=== PATIENT | female | born 1995 | race Caucasian/White ===

== ENCOUNTER 2016-10-28 07:06 | Day surgery (SDC) | payer OTHER ==
[2016-10-26 12:18] VITALS: BMI 24.1
[~2016-10-28 07:06] MED LIST: LIDOCAINE 1%/EPI 1:100000 (20 ML MULTI DOSE VIAL) INF ONE
[2016-10-28] MEDS ORDERED: LIDOCAINE 1%/EPI 1:100000 (50 ML MULTI DOSE VIAL) ONE (08:43)
[2016-10-28] MEDS ORDERED: MIDAZOLAM HCL 2 MG/2 ML SINGLE DOSE VIAL ONE (08:51)
[2016-10-28] MEDS ORDERED: KETOROLAC TROMETHAMINE 30 MG/1 ML VIAL ONE (08:51)
[2016-10-28] MEDS ORDERED: DEXAMETHASONE SOD PHOSPHATE 4 MG/1 ML VIAL ONE ×2 (08:51→09:06)
[2016-10-28] MEDS ORDERED: ROCURONIUM BROMIDE 50 MG/5 ML VIAL ONE (08:51)
--- NOTE | 2016-10-28 08:53 | HP ---
History & Physical Update - Physical Physical: No Change - Assessment Assessment: No Change - Plan Plan: No Change (Removal right nasopharyngeal lesion. Likely benign though possibly causing patient's globus sensation as it is seen to ballot up and down when she swallows through action of the soft palate. Patient aware removing this lesion may not resolve this symptom.)
[2016-10-28] MEDS ORDERED: EPINEPHrine/PF 1 MG/1 ML (1:1,000) AMPULE ONE (09:35)
[2016-10-28] MEDS ORDERED: oxyCODONE HCL 5 MG TABLET PO PRN (09:37)
[2016-10-28] MEDS ORDERED: ONDANSETRON 4 MG/2 ML VIAL IVPUSH PRN (09:37)
[2016-10-28] MEDS ORDERED: PROMETHAZINE HCL 25 MG/1 ML VIAL IVPUSH PRN (09:37)
[2016-10-28] MEDS ORDERED: GLYCOPYRROLATE 0.2 MG/1 ML VIAL ONE (09:39)
[2016-10-28] MEDS ORDERED: LACTATED RINGERS SOLUTION 1,000 ML IV SCH (09:45)
[2016-10-28] MEDS ORDERED: PROPOFOL 20 ML ONE (09:48)
[2016-10-28] MEDS ORDERED: FERROUS SO4 325 MG TABLET (FP) PO SCH (10:00)
[2016-10-28] MEDS ORDERED: NALOXONE HCL 0.4 MG/ML VIAL ONE (10:07)
--- NOTE | 2016-10-28 10:22 | OP ---
Operative Note - Note: Operative Date: 10/28/16 Pre-Operative Diagnosis: Right Nasopharyngeal Cyst Operation: Excision Nasopharyngeal Lesion Post-Operative Diagnosis: Same as Pre-op Surgeon: Lyle Patel Anesthesiologist/AUTOMATION SPECIALIST: Nate Maurice Jr. Anesthesia: General Specimens Removed: nasopharyngeal cyst Estimated Blood Loss (mls): 20 Fluid Volume Replaced (mls): 1,000 Operative Report Dictated: Yes
[2016-10-28] MEDS ORDERED: ACETAMINOPHEN INJECTION 100 ML IVPB ONE (10:42)
--- NOTE | 2016-10-28 10:56 | OP ---
DATE OF OPERATION: 10/28/2016 ATTENDING SURGEON: Lyle Sosa MD YARD SWITCH OPERATOR: Nate Maurice CRNA PREOPERATIVE DIAGNOSIS: Right nasopharyngeal lesion. POSTOPERATIVE DIAGNOSIS: Right nasopharyngeal lesion. PROCEDURE PERFORMED: Excisional biopsy of right nasopharyngeal lesion. ESTIMATED BLOOD LOSS: 20 mL. INTRAVENOUS FLUIDS: 1 L. SPECIMENS: Right nasopharyngeal lesion. INDICATIONS: The patient is a 21-year-old woman who presented with a history of feeling like there was a lump in her throat on the right side. She would only feel this when she swallowed and says she felt it moving up and down. She also had signs of laryngopharyngeal reflux, and treatment was initially done for this with improvement of some of her other symptoms, but no change in this globus sensation. On endoscopy, she was seen to have cystic polypoid lesion off of the posterior cushion inferiorly of the right eustachian tube. Radiology did not reveal any underlying suspicious mass. Given that it was seen to in fact move up and down with swallowing by action of the soft palate and her failure to respond to laryngopharyngeal reflux treatment, she is felt to be a candidate for removal of this lesion to see if it was responsible for her symptoms. Attempts were made in the office to remove it. However, it was too firmly adherent and not sufficiently accessible. It was then decided to take the patient to the operating room for treatment. After explaining the risks, benefits, limitations, and alternatives , the patients questions were answered. She demonstrated her understanding. Informed consent was given. She understands there is no guarantee of the outcome of surgery, and that further medical and/or surgical treatment may be necessary. FINDINGS: Polypoid mass inferiorly along the posterior cushion of the eustachian tube and the right nasopharynx. PROCEDURE IN DETAIL: The patient was taken from the preoperative area to the OR , placed on the table in a supine position. General anesthesia was induced, and the patient was intubated. A time-out was called, and she received a preoperative dose of steroid. She was prepped and draped in standard fashion. Topical lidocaine with epinephrine was used to decongest the nose. A 0-degree rigid endoscope was used to examine the nasopharynx. Initially, attempts were made with a [id number] straight forceps to grab the polyp. However, it was not sufficient to detach it from its base. Not seeing any through-cut instrumentation on the set, the microdebrider was then used in an attempt to remove the lesion. However, given the angulation and the back of the nasopharynx located more inferiorly, this was also not accessible. A through-cut forceps was identified and then used to remove the polyp. There was minimal stalk remaining, which was difficult to access transnasally. A tonsil set was opened and a McIvor clamp was inserted to allow access to the nasopharynx in standard adenoidectomy fashion, as had been discussed with the patient beforehand. A Kyel-Doretha catheter was used to elevate the soft palate, and care was taken to avoid damage to the teeth. Using a dental mirror, the stump of the polyp was then identified and cauterized with a suction Bovie. This was then examined again transnasally with a rigid endoscopy. Care was taken to avoid damage or cautery to the eustachian tube orifice and cushion itself to avoid scarring. Satisfied with the debulking of the polyp and with hemostasis, the mouth gag and catheters were removed. The patient was then returned to the care of the anesthesiology team for awakening and extubation. All counts were correct. I was present for and performed this entire procedure. LYLE SOSA M.D. [id number] MTDD
[2016-10-28 11:36] VITALS: PULSE 83
[2016-10-28] MEDS ORDERED: ACETAMINOPHEN 1000 MG/100 ML VIAL (NON FORMULARY) IVPB ONE (12:15)
[2016-10-28] MEDS ORDERED: oxyCODONE HCL 5 MG TABLET ONE (12:15)
[2016-10-28 12:36] VITALS: TEMP 99
[2016-10-28 12:51] VITALS: BP 104/66
--- NOTE | 2016-11-02 09:37 | PATH ---
Surgical Pathology Report Patient Name: HARLEEN DIAZ Med. Rec. #: [id number] /Age/Gender: 1995 (Age: 21) / F Account: [id number] Location: [facility] SURGICAL Taken: 10/28/2016 Received: 10/28/2016 Reported: 11/02/2016 Physicians: Lyle Patel M.D. Specimen(s) Received NASAL PHARYNGEAL POLYP Clinical History Nasal polyps Final Diagnosis NASAL PHARYNGEAL POLYP, EXCISION: CONSISTENT WITH BENIGN NASOPHARYNGEAL HAMARTOMA (SEE COMMENT). Comment: The sections show a polypoid lesion comprised of dense stroma with embedded benign seromucinous glands, mature adipose tissue and mature cartilage. These findings are most consistent with nasopharyngeal hamartoma. Electronically Signed Michael Bowen M.D. Gross Description Received in formalin labeled nasal pharyngeal polyp are two fragments of shafer-pink tissue measuring 0.5 cm in greatest dimension each. Entirely submitted in one cassette. (AF) ymcash/10/28/2016
== END 2016-10-28 12:51 | disposition home or self-care (01) ==
LOC: JASU-SURG 07:06
PROVIDERS: ATTEND Otolaryngology Facial Plastic Surgery
PROC: 095 Ear, Nose, Sinus, Destruction (ICD-10-PCS; principal; 2016-10-28 08:30)
DX: J33.0 Polyp of nasal cavity (principal)
CPT/HCPCS: 84703; 88305-TC; 94760

== ENCOUNTER 2018-10-24 10:52 | Emergency (ER) | payer OTHER ==
[2018-10-24 10:57] VITALS: BMI 26.6
--- NOTE | 2018-10-24 11:15 | PDOC ---
History of Present Illness - General History Source: Patient Exam Limitations: No Limitations - History of Present Illness Initial Comments: 10/24/18 12:35 The patient is a 23-year-old female, A4, with a past medical history of herpes and one previous episode of chlamydia, who presents to the ED with vaginal bleeding, abdominal pain, and lower back pain. Patient states that the vaginal bleeding began on Monday10/19/18 and is brown in color. Patients abdominal pain began on Monday10/22/18 and states that it is located in the RUQ. Patient has a history of failed pregnancies, 2 miscarriages, 1 , and 1 ectopic (2017 - injection). She reports that her abdominal pain is similar to what she experienced last year when she had an ectopic . Patient follows up at [facility]. The patient denies any fevers, chills, nausea, vomiting, or diarrhea. Denies any urinary symptoms. Denies any chest pain or shortness of breath. Allergies: NKA Social History: None reported. Surgical History: Tonsillectomy, polyp removal from throat. PCP: Dr. Tobin Felix <Jayne Azevedo - Last Filed: 10/24/18 12:35> - General History Source: Patient Exam Limitations: No Limitations <Marina James - Last Filed: 10/27/18 01:28> - General Chief Complaint: Vaginal Bleeding Stated Complaint: POSSIBLE ECTOPIC PREG Time Seen by Provider: 10/24/18 11:15 Past History <Jayne Azevedo - Last Filed: 10/24/18 12:35> - Past Medical History Anemia: Yes CVA: No COPD: No Dementia: No GI Disorders: No Disorders: No Liver Disease: No Thyroid Disease: No - Reproductive History (#): 2 Para: 0 Therapeutic (s) & number: Yes (X1) - Immunization History Immunization Up to Date: Yes - Suicide/Smoking/Psychosocial Hx Smoking Status: No Smoking History: Never smoked Have you smoked in the past 12 months: No Number of Cigarettes Smoked Daily: 5 Hx Alcohol Use: No Drug/Substance Use Hx: No Substance Use Type: None <Marina James - Last Filed: 10/27/18 01:28> - Past Medical History Allergies/Adverse Reactions: Allergies Allergy/AdvReac Type Severity Reaction Status Date / Time No Known Drug Allergies Allergy Verified 10/26/18 16:45 Home Medications: Ambulatory Orders Omeprazole 20 mg PO ASDIR 10/26/18 Review of Systems - Review of Systems Able to Perform ROS?: Yes Comments:: 10/24/18 12:36 GENERAL/CONSTITUTIONAL: No fever or chills. No weakness. HEAD, EYES, EARS, NOSE AND THROAT: No change in vision. No ear pain or discharge. No sore throat. CARDIOVASCULAR: No chest pain or shortness of breath. RESPIRATORY: No cough, wheezing, or hemoptysis. GASTROINTESTINAL: (+)Abdominal pain. No nausea, vomiting, diarrhea or constipation. GENITOURINARY: (+)Vaginal bleeding. No dysuria, frequency, or change in urination. MUSCULOSKELETAL: (+)Lower back pain. No joint swelling or pain. No neck pain. SKIN: No rash NEUROLOGIC: No headache, vertigo, loss of consciousness, or change in strength/ sensation. ENDOCRINE: No increased thirst. No abnormal weight change. HEMATOLOGIC/LYMPHATIC: No anemia, easy bleeding, or history of blood clots. ALLERGIC/IMMUNOLOGIC: No hives or skin allergy. <Jayne Azevedo - Last Filed: 10/24/18 12:35> *Physical Exam - Vital Signs Last Vital Signs Temp Pulse Resp BP Pulse Ox 98.2 F 110 H 18 121/69 100 10/24/18 10:55 10/24/18 10:55 10/24/18 10:55 10/24/18 10:55 10/24/18 10:55 <Jayne Azevedo - Last Filed: 10/24/18 12:35> - Vital Signs Last Vital Signs Temp Pulse Resp BP Pulse Ox 98.2 F 110 H 18 121/69 100 10/24/18 10:55 10/24/18 10:55 10/24/18 10:55 10/24/18 10:55 10/24/18 10:55 <Marina James - Last Filed: 10/27/18 01:28> Moderate Sedation - Procedure Monitoring Vital Signs: Procedure Monitoring Vital Signs Temperature 98.2 F 10/24/18 10:55 Pulse Rate 110 H 10/24/18 10:55 Respiratory Rate 18 10/24/18 10:55 Blood Pressure 121/69 10/24/18 10:55 O2 Sat by Pulse Oximetry (%) 100 10/24/18 10:55 <Jayne Azevedo - Last Filed: 10/24/18 12:35> - Procedure Monitoring Vital Signs: Procedure Monitoring Vital Signs Temperature 98.2 F 10/24/18 10:55 Pulse Rate 110 H 10/24/18 10:55 Respiratory Rate 18 10/24/18 10:55 Blood Pressure 121/69 10/24/18 10:55 O2 Sat by Pulse Oximetry (%) 100 10/24/18 10:55 <Marina James - Last Filed: 10/27/18 01:28> ED Treatment Course - LABORATORY CBC & Chemistry Diagram: 10/24/18 11:30 10/24/18 11:30 - ADDITIONAL ORDERS Additional order review: Laboratory Results 10/24/18 10/24/18 10/24/18 11:30 11:30 11:30 PT with INR 12.40 INR 1.05 Sodium 137 Potassium 3.8 Chloride 105 Carbon Dioxide 27 Anion Gap 6 L BUN 10 Creatinine 0.7 Creat Clearance w eGFR > 60 Random Glucose 90 Calcium 9.1 Total Bilirubin 0.3 AST 10 L ALT 15 Alkaline Phosphatase 93 Total Protein 7.9 Albumin 4.1 Beta HCG, Quant 837.3 Blood Type O NEGATIVE Antibody Screen Negative 10/24/18 11:30 RBC 4.69 MCV 78.8 L MCHC 34.0 RDW 14.4 MPV 8.4 Neutrophils % 47.7 Lymphocytes % 41.3 H Monocytes % 9.9 Eosinophils % 0.4 Basophils % 0.7 <Jayne Azevedo - Last Filed: 10/24/18 12:35> - LABORATORY CBC & Chemistry Diagram: 10/24/18 11:30 10/24/18 11:30 <Marina James - Last Filed: 10/27/18 01:28> Medical Decision Making - Medical Decision Making 23 yo F presenting to the ER due to suspected ectopic (because her pain is similar to pain 2017) Pt is approximately 5 weeks by dates Is followed by [facility] Pt has noted dark vaginal discharge 10/24/18 12:39 Laboratory Tests 10/24/18 10/24/18 10/24/18 11:30 11:30 11:30 WBC 5.5 Hgb 12.6 Hct 37.0 Plt Count 222 INR 1.05 BUN 10 Creatinine 0.7 Beta HCG, Quant 837.3 TVUS pending 10/24/18 13:57 US with corpus luteum cyst in left ovary Pt will need to follow up for repeat BHCG and TVUS Laboratory Tests 10/24/18 11:30 Blood Type O NEGATIVE Will give Rhogam Will D/c with 48 hour follow up <Marina James - Last Filed: 10/27/18 01:28> *DC/Admit/Observation/Transfer - Attestations Scribe Attestion: 10/24/18 12:38 Documentation prepared by Jayne Azevedo, acting as biomedical service engineer for Marina James MD. <Jayne Azevedo - Last Filed: 10/24/18 12:35> <Marina James - Last Filed: 10/27/18 01:28> Diagnosis at time of Disposition: Vaginal bleeding in - Discharge Dispostion Disposition: HOME Condition at time of disposition: Stable - Referrals Referrals: Tobin Felix MD [Primary Care Provider] - - Patient Instructions Printed Discharge Instructions: DI for Vaginal Bleeding During Additional Instructions: Ms Pino Thank you for coming in to the ER today Please be sure to follow up with your OB OR the ER in 48 hours (on Monday) for repeat BHCG (chemistry hormone) Please return to the ER for heavy bleeding, lightheadedness, weakness, saturating 2 pads/hour x 2 hours, any other concern or complaint
[2018-10-24 11:37] LABS: BASO % 0.7 % (0-2.0); EOS % 0.4 % (0-4.5); HEMOGLOBIN 12.6 GM/dL (10.7-15.3); LYMPH % 41.3 % (8-40); MCH 26.8 pg (25.7-33.7); MEAN CELL VOLUME 78.8 fl (80-96); MEAN PLT VOLUME 8.4 fl (7.5-11.1); MONO % 9.9 % (3.8-10.2); NEUT % 47.7 % (42.8-82.8); PLATELET COUNT 222 K/MM3 (134-434); RBC 4.69 M/mm3 (3.60-5.2); RDW 14.4 % (11.6-15.6); WHITE BLOOD COUNT 5.5 K/mm3 (4.0-10.0)
[2018-10-24 12:07] LABS: ALBUMIN 4.1 g/dl (3.4-5.0); ALK PHOS 93 U/L (45-117); ANION GAP 6 MMOL/L (8-16); BILIRUBIN,TOTAL 0.3 mg/dL (0.2-1); BLOOD UREA NITROGEN 10 mg/dL (7-18); CALCIUM 9.1 mg/dL (8.5-10.1); CHLORIDE 105 mmol/L (98-107); CO2 27 mmol/L (21-32); CREATININE 0.7 mg/dL (0.55-1.3); GLUCOSE,RANDOM 90 mg/dL (74-106); POTASSIUM 3.8 mmol/L (3.5-5.1); SGOT/AST 10 U/L (15-37); SGPT/ALT 15 U/L (13-61); SODIUM 137 mmol/L (136-145); TOT PROT 7.9 g/dl (6.4-8.2)
[2018-10-24 12:12] LABS: INR 1.05 (0.83-1.09); PROTHROMBIN TIME (PATIENT) 12.4 SEC (9.7-13.0)
[2018-10-24] MEDS ORDERED: RHO(D) IMMUNE GLOBULIN 1,500 UNIT DISP.SYRIN IM ONE (13:58)
[2018-10-24 14:29] VITALS: BP 105/72; PULSE 85; TEMP 98.6
== END 2018-10-24 15:34 | disposition home or self-care (01) ==
LOC: JER 10:52
PROC: 3E023GC Introduction of Other Therapeutic Substance into Muscle, Percutaneous Approach (ICD-10-PCS; principal; 2018-10-24)
DX: O26.891 Other specified pregnancy related conditions, first trimester (principal); Z3A.00 Weeks of gestation of pregnancy not specified; N93.9 Abnormal uterine and vaginal bleeding, unspecified
CPT/HCPCS: 36415; 76817-TC; 80053; 84702; 85025; 85610; 86850; 86900; 86901; 86999; 99283-25; J1561

== ENCOUNTER 2018-10-26 16:28 | Emergency (ER) | payer OTHER ==
--- NOTE | 2018-10-26 16:47 | PDOC ---
Rapid Medical Evaluation Chief Complaint: Revisit, Lab Variance Time Seen by Provider: 10/26/18 16:45 Medical Evaluation: Allergies Allergy/AdvReac Type Severity Reaction Status Date / Time No Known Drug Allergies Allergy Verified 10/26/18 16:45 10/26/18 16:46 I performed a brief in-person evaluation of this patient. Chief complaint: w right pelvic pain and spotting, hx ectopic. Seen and instructed to return today for repeat beta and u/s. Blood type O- received Rhogam last visit. Pertinent physical exam findings: None I have ordered the following: Beta hcg, BMP and CBC in case of pos ectopic, u/s to confirm IUP Patient to proceed to the ED for further evaluation. 10/26/18 16:47 Discharge Disposition - Diagnosis Pelvic pain affecting - Referrals - Patient Instructions - Post Discharge Activity
[2018-10-26 16:53] VITALS: BP 115/75; PULSE 82; TEMP 99; BMI 25.7
[2018-10-26 17:29] LABS: BASO % 0.3 % (0-2.0); EOS % 0.3 % (0-4.5); LYMPH % 43.6 % (8-40); MCH 26.1 pg (25.7-33.7); MCHC 33.4 g/dl (32.0-36.0); MEAN CELL VOLUME 78.4 fl (80-96); MEAN PLT VOLUME 8.8 fl (7.5-11.1); MONO % 8.5 % (3.8-10.2); NEUT % 47.3 % (42.8-82.8); PLATELET COUNT 240 K/MM3 (134-434); RBC 4.59 M/mm3 (3.60-5.2); RDW 13.9 % (11.6-15.6); WHITE BLOOD COUNT 6.7 K/mm3 (4.0-10.0)
[2018-10-26 18:19] LABS: ANION GAP 5 MMOL/L (8-16); BLOOD UREA NITROGEN 9 mg/dL (7-18); CALCIUM 9.1 mg/dL (8.5-10.1); CHLORIDE 104 mmol/L (98-107); CO2 26 mmol/L (21-32); CREATININE 0.6 mg/dL (0.55-1.3); GLUCOSE,RANDOM 91 mg/dL (74-106); POTASSIUM 4.1 mmol/L (3.5-5.1); SODIUM 135 mmol/L (136-145)
--- NOTE | 2018-10-26 19:18 | PDOC ---
History of Present Illness - General Chief Complaint: Revisit, Lab Variance Stated Complaint: ABNORMAL LABS/FOLLOW UP Time Seen by Provider: 10/26/18 16:45 History Source: Patient - History of Present Illness Initial Comments: 10/26/18 19:52 23-year-old female complaining of right sided adnexal pain and brown vaginal discharge. Is seen in the ER on 10/24/2918 noted to have a positive beta with no IUP. Patient was told to return today for reevaluation. Patient was also given RhoGAM for being Rh- last visit. Denies abdominal discomfort, nausea, vomiting, vaginal bleeding at this time. 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 : [facility] 10/26/18 23:07 Past History - Past Medical History Allergies/Adverse Reactions: Allergies Allergy/AdvReac Type Severity Reaction Status Date / Time No Known Drug Allergies Allergy Verified 10/26/18 16:45 Home Medications: Ambulatory Orders Omeprazole 20 mg PO ASDIR 10/26/18 Anemia: Yes CVA: No COPD: No Dementia: No GI Disorders: No Disorders: No Liver Disease: No Thyroid Disease: No - Reproductive History (#): 2 Para: 0 Ectopic : Yes Therapeutic (s) & number: Yes (X1) - Immunization History Immunization Up to Date: Yes - Suicide/Smoking/Psychosocial Hx Smoking Status: No Smoking History: Never smoked Have you smoked in the past 12 months: No Number of Cigarettes Smoked Daily: 5 Hx Alcohol Use: No Drug/Substance Use Hx: No Substance Use Type: None Review of Systems - Review of Systems Able to Perform ROS?: Yes Is the patient limited Maltese proficient: No Constitutional: No: Symptoms Reported, See HPI, Chills, Diaphoresis, Fever, Loss of Appetite, Malaise, Night Sweats, Weakness, Weight Stable, Unintentional Wgt. Loss, Unexplained wgt Loss, Other HEENTM: No: Symptoms Reported, See HPI, Eye Pain, Blurred Vision, Tearing, Recent change in vision, Double Vision, Cataracts, Ear Pain, Ocular Prothesis, Ear Discharge, Nose Pain, Nose Congestion, Tinnitus, Nose Bleeding, Hearing Loss , Throat Pain, Throat Swelling, Mouth Pain, Dental Problems, Difficulty Swallowing, Mouth Swelling, Other ABD/GI: Yes: Other (right sided pelvic pain) *Physical Exam - Vital Signs Last Vital Signs Temp Pulse Resp BP Pulse Ox 99 F 82 18 115/75 100 10/26/18 16:51 10/26/18 16:51 10/26/18 16:51 10/26/18 16:51 10/26/18 16:51 - Physical Exam General Appearance: Yes: Appropriately Dressed Respiratory/Chest: positive: Lungs Clear, Normal Breath Sounds Female Pelvic Exam: positive: normal external exam Musculoskeletal: positive: Normal Inspection Extremity: positive: Normal Capillary Refill, Normal Inspection, Normal Range of Motion Integumentary: positive: Normal Color, Dry, Warm Neurologic: positive: Fully Oriented, Alert, Normal Mood/Affect Moderate Sedation - Procedure Monitoring Vital Signs: Procedure Monitoring Vital Signs Temperature 99 F 10/26/18 16:51 Pulse Rate 82 10/26/18 16:51 Respiratory Rate 18 10/26/18 16:51 Blood Pressure 115/75 10/26/18 16:51 O2 Sat by Pulse Oximetry (%) 100 10/26/18 16:51 ED Treatment Course - LABORATORY CBC & Chemistry Diagram: 10/26/18 16:00 10/26/18 16:51 - ADDITIONAL ORDERS Additional order review: Laboratory Results 10/26/18 16:51 Sodium 135 L Potassium 4.1 Chloride 104 Carbon Dioxide 26 Anion Gap 5 L BUN 9 Creatinine 0.6 Creat Clearance w eGFR 121.81 Random Glucose 91 Calcium 9.1 Beta HCG, Quant 939.4 10/26/18 16:00 RBC 4.59 MCV 78.4 L MCHC 33.4 RDW 13.9 MPV 8.8 Neutrophils % 47.3 Lymphocytes % 43.6 H Monocytes % 8.5 Eosinophils % 0.3 Basophils % 0.3 Medical Decision Making - Medical Decision Making 10/26/18 19:54 A: r/o ecoptic P: labs Type and screen RH - US: budding at the left adnexa concerning for ectopic. 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 10/26/18 19:57 10/26/18 20:[address] verma . recommends follow up beta hcg in 3 days in the office with strict return precautions. patient reports that this is a desired a refused methotrexate. *DC/Admit/Observation/Transfer Diagnosis at time of Disposition: Ectopic Qualifiers: Location of ectopic : unspecified location Intrauterine status: without intrauterine Qualified Code(s): O00.90 - Unspecified ectopic without intrauterine - Discharge Dispostion Disposition: HOME Condition at time of disposition: Stable - Referrals Referrals: Tobin Felix MD [Primary Care Provider] - Heather Verma DO [Staff Physician] - (10/29/2018 @ 9am) - Patient Instructions Printed Discharge Instructions: DI for Ectopic Additional Instructions: Please follow-up with Dr. Verma at her office at 9 AM on Monday. Return immediately to the emergency room if you are feeling worse, soaking through 2 pads per hour, severe abdominal pain, dizziness. - Post Discharge Activity Forms/Work/School Notes: Back to Work
== END 2018-10-26 20:36 | disposition home or self-care (01) ==
LOC: JERFT 16:28
DX: O26.891 Other specified pregnancy related conditions, first trimester (principal); O00.90 Unspecified ectopic pregnancy without intrauterine pregnancy; Z3A.00 Weeks of gestation of pregnancy not specified
CPT/HCPCS: 36415; 76817-TC; 80048; 84702; 85025; 99281-25

== ENCOUNTER 2018-10-29 10:24 | Emergency (ER) | payer OTHER ==
[2018-10-29 10:31] VITALS: BP 136/80; PULSE 83; TEMP 98.6; BMI 26.6
[2018-10-29] MEDS ORDERED: RHO(D) IMMUNE GLOBULIN 1,500 UNIT DISP.SYRIN IM ONE (10:58)
[2018-10-29] MEDS ORDERED: METHOTREXATE SODIUM/PF 25 MG/ML VIAL IM ONE (10:58)
--- NOTE | 2018-10-29 11:00 | PDOC ---
History of Present Illness - General Chief Complaint: ,Possible Stated Complaint: SENT BY PCP Time Seen by Provider: 10/29/18 10:37 - History of Present Illness Initial Comments: 10/29/18 11:25 The patient is a 23 year old female, , with no significant PMH, who presents to the emergency department from Dr. Baxter office for a confirmed ectopic . Patient had US 2 days ago that showed R adnexal mass concerning for ectopic. Today, Dr. Verma repeated the US and confirmed that pt has an ectopic . She was subsequently sent to ED for methotrexate injection. Pt denies any significant pain or bleeding currently. Allergies: NKA Social history: None reported PCP: Dr. Felix OB: Dr. Verma Past History - Past Medical History Allergies/Adverse Reactions: Allergies Allergy/AdvReac Type Severity Reaction Status Date / Time No Known Drug Allergies Allergy Verified 10/29/18 10:28 Home Medications: Ambulatory Orders Omeprazole 20 mg PO ASDIR 10/26/18 Anemia: Yes CVA: No COPD: No Dementia: No GI Disorders: No Disorders: No Liver Disease: No Thyroid Disease: No - Reproductive History (#): 2 Para: 0 Ectopic : Yes Therapeutic (s) & number: Yes (X1) - Immunization History Immunization Up to Date: Yes - Suicide/Smoking/Psychosocial Hx Smoking Status: No Smoking History: Never smoked Have you smoked in the past 12 months: No Number of Cigarettes Smoked Daily: 5 Hx Alcohol Use: No Drug/Substance Use Hx: No Substance Use Type: None Review of Systems - Review of Systems Comments:: 10/29/18 11:27 "GENERAL/CONSTITUTIONAL: No fever or chills. No weakness. HEAD, EYES, EARS, NOSE AND THROAT: No change in vision. No ear pain or discharge. No sore throat. CARDIOVASCULAR: No chest pain, no shortness of breath, no loss of consciousness RESPIRATORY: No cough, wheezing, or hemoptysis. GASTROINTESTINAL: No nausea, vomiting, diarrhea or constipation. GENITOURINARY: No dysuria, frequency, or change in urination. MUSCULOSKELETAL: No joint or muscle swelling or pain. No neck or back pain. SKIN: No rash NEUROLOGIC: No vertigo, no change in strength/sensation. ENDOCRINE: No increased thirst. No abnormal weight change. HEMATOLOGIC/LYMPHATIC: No anemia, easy bleeding, or history of blood clots. ALLERGIC/IMMUNOLOGIC: No hives or skin allergy. *Physical Exam - Vital Signs Last Vital Signs Temp Pulse Resp BP Pulse Ox 98.6 F 83 16 136/80 98 10/29/18 10:29 10/29/18 10:29 10/29/18 10:29 10/29/18 10:29 10/29/18 10:29 - Physical Exam Comments: 10/29/18 11:28 "GENERAL: Awake, alert, and fully oriented, in no acute distress. HEAD: No signs of trauma EYES: PERRLA, EOMI, sclera anicteric, conjunctiva clear ENT: Auricles normal inspection, hearing grossly normal, nares patent, oropharynx clear without exudates. Moist mucosa NECK: Nontender, no stepoffs, Normal ROM, supple, no lymphadenopathy, JVD, or masses LUNGS: Breath sounds equal, clear to auscultation bilaterally. No wheezes, and no crackles HEART: Regular rate and rhythm, normal S1 and S2, no murmurs, rubs or gallops ABDOMEN: Soft, nontender, normoactive bowel sounds. No guarding, no rebound. No masses EXTREMITIES: Normal range of motion, no edema. No clubbing or cyanosis. No cords, erythema, or tenderness NEUROLOGICAL: Cranial nerves II through XII intact. 5/5 strength and sensation in all extremities, Normal speech, normal gait, normal cerebellar function SKIN: Warm, Dry, normal turgor, no rashes or lesions noted. Moderate Sedation - Procedure Monitoring Vital Signs: Procedure Monitoring Vital Signs Temperature 98.6 F 10/29/18 10:29 Pulse Rate 83 10/29/18 10:29 Respiratory Rate 16 10/29/18 10:29 Blood Pressure 136/80 10/29/18 10:29 O2 Sat by Pulse Oximetry (%) 98 10/29/18 10:29 Medical Decision Making - Medical Decision Making 10/29/18 11:28 23 F with confirmed ectopic , sent in by Dr. Verma for MTX. I discussed case with Dr. Verma, who requests MTX 90mg IM and B HCG level. Per Dr. Verma, Pt is to return on and Monday for repeat HCG. Pt also noted to be O negative. Will need Rhogam as well. - MTX - Rhogam - F/u OB in 3 days Pt is well appearing, with normal vitals. Clinically stable for DC at this time. I discussed the physical exam findings, ancillary test results and final diagnoses with the patient. I answered all of the patient's questions. The patient was satisfied with the care received and felt comfortable with the discharge plan and treatment plan. The patient agrees to follow up with the primary care physician within 24-72 hours. *DC/Admit/Observation/Transfer Diagnosis at time of Disposition: Ectopic - Discharge Dispostion Disposition: HOME - Referrals Referrals: Tobin Felix MD [Primary Care Provider] - - Patient Instructions Printed Discharge Instructions: DI for Ectopic Additional Instructions: You need to return to the hospital in 3 days (this ) and in 6 days (on Monday) for repeat blood tests. If you experience severe pain, bleeding, fevers, or any other concerning symptoms, return to the ER immediately. - Post Discharge Activity Forms/Work/School Notes: Back to Work - Attestations Physician Attestion: 10/29/18 11:35 I, Dr. Zuhair Jones MD, attest that this document has been prepared under my direction and personally reviewed by me in its entirety. I further attest, that it accurately reflects all work, treatment, procedures and medical decision -making performed by me.
== END 2018-10-29 12:42 | disposition home or self-care (01) ==
LOC: JER 10:24 → SUPCPDRO 10:24 → JER 12:42
PROC: 3E0234Z Introduction of Serum, Toxoid and Vaccine into Muscle, Percutaneous Approach (ICD-10-PCS; principal; 2018-10-29)
PROC: 3E023GC Introduction of Other Therapeutic Substance into Muscle, Percutaneous Approach (ICD-10-PCS; 2018-10-29)
DX: O26.891 Other specified pregnancy related conditions, first trimester (principal); O00.90 Unspecified ectopic pregnancy without intrauterine pregnancy; Z3A.00 Weeks of gestation of pregnancy not specified; Z67.41 Type O blood, Rh negative
CPT/HCPCS: 36415; 84702; 86999; 96372; 99281-25; J1561; J9260

== ENCOUNTER 2018-11-01 16:14 | Emergency (ER) | payer OTHER ==
[2018-11-01 16:19] VITALS: BP 109/60; PULSE 91; TEMP 98.2; BMI 25.0
--- NOTE | 2018-11-01 16:49 | PDOC ---
Rapid Medical Evaluation Chief Complaint: Revisit, Lab Variance Time Seen by Provider: 11/01/18 16:16 Medical Evaluation: Allergies Allergy/AdvReac Type Severity Reaction Status Date / Time No Known Drug Allergies Allergy Verified 11/01/18 16:19 Vital Signs Temp Pulse Resp BP Pulse Ox 98.2 F 91 H 17 109/60 99 11/01/18 16:18 11/01/18 16:18 11/01/18 16:18 11/01/18 16:18 11/01/18 16:18 11/01/18 16:46 Pt c/o: received methotrexate on 10/29, here for bhcg, no complaints Pt on brief exam: vss Pt ordered for: bhcg Pt to proceed to the ED Discharge Disposition - Diagnosis Ectopic - Referrals - Patient Instructions - Post Discharge Activity
--- NOTE | 2018-11-01 18:09 | PDOC ---
History of Present Illness - General Chief Complaint: Revisit, Lab Variance Stated Complaint: HCG levels Time Seen by Provider: 11/01/18 16:16 History Source: Patient Exam Limitations: No Limitations - History of Present Illness Initial Comments: 11/01/18 18:04 Patient returned beta hCG. Has been seen here a number of times including on 318 where was given methotrexate injection for positive ectopic . Patient states since that time she started bleeding the following day and is still vaginal bleeding without cramping, no fevers, no other illness. Was instructed to return today and then again Monday for repeat beta-hCG to insure effectiveness of treatment. Timing/Duration: unsure Severity: mild Past History - Travel Traveled outside of the country in the last 30 days: No Close contact w/someone who was outside of country & ill: No - Past Medical History Allergies/Adverse Reactions: Allergies Allergy/AdvReac Type Severity Reaction Status Date / Time No Known Drug Allergies Allergy Verified 11/01/18 16:19 Home Medications: Ambulatory Orders NK [No Known Home Medication] 11/01/18 Anemia: Yes CVA: No COPD: No Dementia: No GI Disorders: No Disorders: No Liver Disease: No Thyroid Disease: No - Reproductive History (#): 2 Para: 0 Ectopic : Yes Therapeutic (s) & number: Yes (X1) - Immunization History Immunization Up to Date: Yes - Suicide/Smoking/Psychosocial Hx Smoking Status: No Smoking History: Never smoked Have you smoked in the past 12 months: No Number of Cigarettes Smoked Daily: 5 Information on smoking cessation initiated: No Hx Alcohol Use: No Drug/Substance Use Hx: No Substance Use Type: None Review of Systems - Review of Systems Able to Perform ROS?: Yes Is the patient limited American proficient: Yes Constitutional: Yes: Symptoms Reported, See HPI, Malaise. No: Fever, Loss of Appetite HEENTM: Yes: See HPI. No: Symptoms Reported Respiratory: Yes: See HPI. No: Symptoms reported, Cough Musculoskeletal: No: Symptoms Reported Integumentary: No: Symptoms Reported Neurological: Yes: See HPI. No: Symptoms reported All Other Systems: Reviewed and Negative *Physical Exam - Vital Signs Last Vital Signs Temp Pulse Resp BP Pulse Ox 98.2 F 91 H 17 109/60 99 11/01/18 16:18 11/01/18 16:18 11/01/18 16:18 11/01/18 16:18 11/01/18 16:18 - Physical Exam General Appearance: Yes: Nourished, Appropriately Dressed. No: Apparent Distress HEENT: positive: ROMARIO, Normal ENT Inspection, TMs Normal, Pharynx Normal Neck: positive: Supple. negative: Tender Respiratory/Chest: positive: Lungs Clear, Normal Breath Sounds Extremity: positive: Normal Capillary Refill, Normal Inspection Neurologic: positive: heel curver II-XII NML intact, Fully Oriented, Alert, Normal Mood/ Affect Moderate Sedation - Procedure Monitoring Vital Signs: Procedure Monitoring Vital Signs Temperature 98.2 F 11/01/18 16:18 Pulse Rate 91 H 11/01/18 16:18 Respiratory Rate 17 11/01/18 16:18 Blood Pressure 109/60 11/01/18 16:18 O2 Sat by Pulse Oximetry (%) 99 11/01/18 16:18 Medical Decision Making - Medical Decision Making 11/01/18 18:[address] Verma, and reviewed beta-hCGs. She understands number now 2600 and states that is a normal variant and will expect beta-hCGs now to reduce. Patient understands to return on Monday for repeat beta hCG. Dr. Verma reports that if is 15% or less then 2 days rate hCG and is a normal miscarriage/ abortive measure and that patient may follow-up with her in one week at the office for repeat beta hCGs. Expectation would be weakly beta-hCGs in Dr. Verma 's office until beta hCG reaches 0. *DC/Admit/Observation/Transfer Diagnosis at time of Disposition: Ectopic Qualifiers: Location of ectopic : tubal Intrauterine status: unspecified Laterality: right Qualified Code(s): O00.101 - Right tubal without intrauterine - Discharge Dispostion Disposition: HOME Condition at time of disposition: Stable Decision to Admit order: No - Referrals Referrals: Tobin Felix MD [Primary Care Provider] - - Patient Instructions Printed Discharge Instructions: DI for Ectopic Additional Instructions: Return to emergency Department on Monday for repeat beta hCG. If your numbers decreased by 15% or more no further treatment will be necessary. Dr. Jackson would like to see you in her office in one week for repeat beta hCG until they return to 0. Drink lots of fluids drink plenty of fluids, continue vitamins to replace fluid and blood loss Return immediately to emergency department for fevers, abdominal cramping, worsened bleeding or any concerns/distress - Post Discharge Activity
== END 2018-11-01 19:03 | disposition home or self-care (01) ==
LOC: JERFT 16:14
DX: O00.101 Right tubal pregnancy without intrauterine pregnancy (principal)
CPT/HCPCS: 36415; 84702; 99281-25

== ENCOUNTER 2018-11-04 09:19 | Emergency (ER) | payer OTHER ==
[2018-11-04 09:22] VITALS: BP 104/64; PULSE 79; TEMP 98
--- NOTE | 2018-11-04 11:57 | PDOC ---
History of Present Illness - General Chief Complaint: Revisit, Lab Variance Stated Complaint: REVISIT / LABS Time Seen by Provider: 11/04/18 10:57 History Source: Patient Exam Limitations: No Limitations Past History - Past Medical History Allergies/Adverse Reactions: Allergies Allergy/AdvReac Type Severity Reaction Status Date / Time No Known Drug Allergies Allergy Verified 11/04/18 09:22 Home Medications: Ambulatory Orders NK [No Known Home Medication] 11/01/18 Anemia: Yes CVA: No COPD: No Dementia: No GI Disorders: No Disorders: No Liver Disease: No Thyroid Disease: No - Reproductive History (#): 2 Para: 0 Ectopic : Yes Therapeutic (s) & number: Yes (X1) - Immunization History Immunization Up to Date: Yes - Suicide/Smoking/Psychosocial Hx Smoking Status: No Smoking History: Never smoked Have you smoked in the past 12 months: No Number of Cigarettes Smoked Daily: 5 Hx Alcohol Use: No Drug/Substance Use Hx: No Substance Use Type: None *Physical Exam - Vital Signs Last Vital Signs Temp Pulse Resp BP Pulse Ox 98 F 79 18 104/64 99 11/04/18 09:19 11/04/18 09:19 11/04/18 09:19 11/04/18 09:19 11/04/18 09:19 - Physical Exam General Appearance: No: Apparent Distress Respiratory/Chest: positive: Lungs Clear, Normal Breath Sounds. negative: Respiratory Distress Cardiovascular: positive: Regular Rhythm, Regular Rate, S1, S2. negative: Murmur Gastrointestinal/Abdominal: positive: Normal Bowel Sounds, Soft. negative: Tender, Distended, Guarding, Rebound Integumentary: positive: Normal Color Neurologic: positive: Alert, Normal Mood/Affect Moderate Sedation - Procedure Monitoring Vital Signs: Procedure Monitoring Vital Signs Temperature 98 F 11/04/18 09:19 Pulse Rate 79 11/04/18 09:19 Respiratory Rate 18 11/04/18 09:19 Blood Pressure 104/64 11/04/18 09:19 O2 Sat by Pulse Oximetry (%) 99 11/04/18 09:19 ED Treatment Course - ADDITIONAL ORDERS Additional order review: Laboratory Results 11/04/18 09:40 Beta HCG, Quant 2603.5 - RADIOLOGY Radiology Studies Ordered: Category Date Time Status TRANSVAGINAL US PREG [US] Stat Ultrasound 11/04/18 11:48 Ordered Medical Decision Making - Medical Decision Making 23 y/o F, recently dx with ectopic 10/26 s/p Methotrexate injection on 10/29, presents for repeat Bhcg. Patient followed by Dr. Verma, noted with uptrending Bhcg on 11/01 and advised to return today for another Bhcg level check. Per prior note, want 15% decrease in Bhcg today. Patient had bleeding the first 3 days after she got the Methotrexate, but is no longer having any bleeding. Denies fever, abd pain, n/v. Laboratory Tests 11/01/18 11/04/18 16:56 09:40 Beta HCG, Quant 2622.4 2603.5 Bhcg decreased slightly but not 15% Discussed with Dr. Lerma, who is covering for Dr. Verma - recommends repeat pelvic ultrasound; states patient may need another shot of Methotrexate 11/04/18 11:51 TVUS shows unchanged size of L adnexal structure, but also with interval development of 0.7 cm hypoechoic focus within structure (possible gestational sac vs focal necrosis) Pending callback from Dr. Lerma to discuss results 11/04/18 13:57 Findings d/w Dr. Lerma - recommends another shot of Methotrexate Patient received 90 mg IM Methotrexate Patient has f/u appointment with Dr. Verma in 3 days Stable for dc 11/04/18 14:18 *DC/Admit/Observation/Transfer Diagnosis at time of Disposition: Ectopic Qualifiers: Location of ectopic : tubal Intrauterine status: without intrauterine Laterality: left Qualified Code(s): O00.102 - Left tubal without intrauterine - Discharge Dispostion Disposition: HOME Condition at time of disposition: Stable Decision to Admit order: No - Referrals Referrals: Tobin Felix MD [Primary Care Provider] - Heather Verma DO [Staff Physician] - 11/07/18 - Patient Instructions Printed Discharge Instructions: DI for Ectopic Additional Instructions: Thank you for choosing [facility]. It was a pleasure taking care of you. You were given another shot of Methotrexate for your ectopic Be sure to follow-up with Dr. Verma as scheduled on 11/07 Return to the Emergency Department if your symptoms worsen or persist or have other concerning symptoms. - Post Discharge Activity
[2018-11-04 14:15] VITALS: BMI 26.6
[2018-11-04] MEDS ORDERED: METHOTREXATE SODIUM/PF 25 MG/ML VIAL IM ONE (14:15)
== END 2018-11-04 15:30 | disposition home or self-care (01) ==
LOC: JERFT 09:19
DX: O00.90 Unspecified ectopic pregnancy without intrauterine pregnancy (principal)
CPT/HCPCS: 36415; 76817-TC; 84702; 99281-25; J9260